=== PATIENT | female | born 1970 | race African-American/Black ===

== ENCOUNTER 2017-05-06 08:56 | Observation (INO) | payer MEDICAID ==
[~2017-05-06] VITALS: Ht 162.6 cm; Wt 72.6 kg
[~2017-05-06 08:56] MED LIST: LAMO200T2 PO; QUET200T3 PO
[2017-05-06 09:47] LABS: Basophils # (auto) 0 uL; Basophils % (auto) 0.4 % (0.0-2.0); Eosinophils # (auto) 0 uL; Hematocrit 42.5 % (36.0-46.0); Hemoglobin 14.3 g/dL (12.2-16.2); Lymphocytes # (auto) 1.1 uL; Mean Corpuscular Hemoglobin 29.9 pg (28.0-32.0); Mean Corpuscular Hgb Conc. 33.6 g/dL (32.0-36.0); Monocytes # (auto) 0.2 uL; Neutrophils # (auto) 10.1 uL; Neutrophils % (auto) 87.6 % (37.0-80.0); Nucleated Red Blood Cells % 0.2 %; Platelet Count (auto) 296 10^3/uL (140-450); Red Blood Cells 4.78 10^6/uL (4.0-5.20); Red Cell Distribution Width 13.6 % (11.8-14.3); White Blood Cell 11.5 10^3/uL (4.4-10.8)
[2017-05-06 10:10] LABS: Albumin 3.8 g/dL (3.4-5.0); Calcium 8.6 mg/dL (8.5-10.1); Magnesium 1.9 mg/dL (1.6-2.6); Potassium 3.7 mmol/L (3.5-5.1)
[2017-05-06 10:12] LABS: Bilirubin, Total 0.4 mg/dL (0.2-1.0); Total Protein 7.9 g/dL (6.4-8.2)
[2017-05-06] MEDS ORDERED: SODIUM CHLORIDE 0.9% 1,000 ML IVB ONE (12:27)
[2017-05-06] MEDS ORDERED: ONDANSETRON HCL 4 MG/2 ML VIAL IV ONE (12:30)
[2017-05-06 13:47] LABS: Urine Bacteria FEW /hpf (None Seen); Urine Blood 2+ /uL (Negative); Urine Mucus FEW (None Seen); Urine Specific Gravity 1.036 (1.001-1.035); Urine WBC 176 /hpf (0 - 5)
[2017-05-06] MEDS ORDERED: KETOROLAC TROMETH 60MG/2ML VIAL IM ONE (18:00)
[2017-05-06 19:30] VITALS: BP 130/92
== END 2017-05-06 19:59 | disposition home or self-care (01) | DRG 243 ==
LOC: EDBD 08:56 → ER 08:56 → OVERFLOW 12:29 → ER 19:57
PROVIDERS: ADMIT Family Medicine; ATTEND Family Medicine
DX: K20.9 Esophagitis, unspecified (principal); F32.9 Major depressive disorder, single episode, unspecified; N20.0 Calculus of kidney; E78.5 Hyperlipidemia, unspecified; F10.20 Alcohol dependence, uncomplicated; Z82.49 Family history of ischemic heart disease and other diseases of the circulatory system; Z79.899 Other long term (current) drug therapy
CPT/HCPCS: 36415; 74176; 80053; 81001; 82150; 83690; 83735; 84702; 85025; 96372; 99285; G0378; J1885

== ENCOUNTER 2018-05-30 01:01 | Emergency (ER) | payer MEDICAID ==
[~2018-05-30] VITALS: Ht 162.6 cm; Wt 72.6 kg
[2018-05-30 03:00] LABS: Basophils # (auto) 0 uL; Basophils % (auto) 0.4 % (0.0-2.0); Eosinophils # (auto) 0.4 uL; Eosinophils % (auto) 6.2 % (0.0-7.0); Hematocrit 35.7 % (36.0-46.0); Hemoglobin 11.8 g/dL (12.2-16.2); Lymphocytes # (auto) 1.2 uL; Lymphocytes % (auto) 18.1 % (10.0-50.0); Mean Corpuscular Hemoglobin 29.3 pg (28.0-32.0); Mean Corpuscular Volume 88.9 fL (80.0-100.0); Monocytes # (auto) 0.3 uL; Monocytes % (auto) 5.1 % (0.0-12.0); Neutrophils # (auto) 4.6 uL; Neutrophils % (auto) 70.2 % (37.0-80.0); Nucleated Red Blood Cells % 0.1 %; Platelet Count (auto) 228 10^3/uL (140-450); Red Blood Cells 4.02 10^6/uL (4.0-5.20); Red Cell Distribution Width 13.5 % (11.8-14.3); White Blood Cell 6.6 10^3/uL (4.4-10.8)
[2018-05-30 03:18] LABS: Alanine Aminotransferase 49 U/L (13-56); Albumin 2.6 g/dL (3.4-5.0); Anion Gap 9 (5-15); BUN/Creatinine Ratio 8.1; Blood Alcohol < 3.0 mg/dL (0-5); Blood Urea Nitrogen 6 mg/dL (7-18); Calcium 8.1 mg/dL (8.5-10.1); Carbon Dioxide 24 mmol/L (21-32); Chloride 107 mmol/L (98-107); GFR African American 108 mL/min; GFR Non-African American 89 mL/min; Glucose 99 mg/dL (74-106); Magnesium 2.5 mg/dL (1.6-2.6); Potassium 3.1 mmol/L (3.5-5.1); Sodium 140 mmol/L (136-145)
[2018-05-30 03:28] LABS: Alkaline Phosphatase 62 U/L (45-117); Aspartate Aminotransferase 75 U/L (15-37); Bilirubin, Total 0.5 mg/dL (0.2-1.0)
[2018-05-30 04:49] LABS: Acetaminophen < 2.0 ug/mL (10-30); Salicylate < 1.7 mg/dL (2.8-20.0)
[2018-05-30 05:48] LABS: Urine WBC None Seen /hpf (0 - 5)
[2018-05-30 06:05] LABS: Urine Bacteria FEW /hpf (None Seen); Urine Blood 2+ /uL (Negative); Urine Mucus FEW (None Seen); Urine Specific Gravity 1.031 (1.001-1.035)
[2018-05-30 06:13] LABS: Alcohol, Urine < 3.0 mg/dL (0-5); Amphetamine Screen, Urine NEGATIVE (NEGATIVE); Benzodiazephine Screen, Urine POSITIVE (NEGATIVE); Cannabinoid Screen, Urine POSITIVE (NEGATIVE); Opiate Scree,Urine NEGATIVE (NEGATIVE); Phencyclidine Screen, Urine NEGATIVE (NEGATIVE)
[2018-05-30 06:20] LABS: Barbiturate Scree,Urine NEGATIVE (NEGATIVE); Cocaine Screen, Urine NEGATIVE (NEGATIVE)
[2018-05-31] MEDS ORDERED: methylPREDNISolone SOD SUCC 125 MG/2 ML VL IV ONE (00:30)
[2018-05-31] MEDS ORDERED: IPRATROPIUM BROM 0.5 MG/2.5ML INH SOL NEB ONE (00:30)
[2018-05-31] MEDS ORDERED: ALBUTEROL SULF 2.5 MG/0.5ML(0.5%) NEB SOLN NEB ONE (00:30)
[2018-05-31] MEDS ORDERED: LORazepam 0.5 MG TAB PO ONE (10:00)
[2018-05-31] MEDS ORDERED: SODIUM CHLORIDE 0.9% 1,000 ML IV ONE ×2 (12:41)
[2018-05-31] MEDS ORDERED: POTASSIUM EFFERVESENT TAB 25 MEQ PO ONE (12:45)
[2018-05-31] MEDS ORDERED: PIPERACILLIN-TAZOB 3.375GM 100 ML IV ONE (12:45)
[2018-05-31] MEDS ORDERED: ONDANSETRON HCL 4 MG/2 ML VIAL IV PRN (13:30)
[2018-05-31] MEDS: SODIUM CHLORIDE 0.9% 1,000 ML IV SCH ×2 (13:30→23:30)
[2018-05-31] MEDS ORDERED: ACETAMINOPHEN 500 MG TAB PO PRN (13:30)
[2018-05-31] MEDS ORDERED: NITROGLYCERIN 0.4 MG SL TAB SL PRN (13:30)
[2018-05-31] MEDS ORDERED: MORPHINE SULF INJ 2 MG/ML SYRINGE 1ML IV PRN (13:30)
[2018-05-31 14:15] LABS: Cholesterol 228 mg/dL (< 200); HDL Cholesterol 116 mg/dL (40-59); LDL Cholesterol 91 mg/dL (< 100); Triglycerides 79 mg/dL (< 150)
[2018-05-31] MEDS ORDERED: HALOPERIDOL LACTATE 5 MG/ML INJ VIAL IV PRN (14:45)
[2018-05-31] MEDS: HALOPERIDOL LACTATE 5 MG/ML INJ VIAL IM PRN (16:04)
[2018-05-31] MEDS ORDERED: POTASSIUM EFFERVESENT TAB 25 MEQ ONE (20:56)
[2018-05-31] MEDS ORDERED: POTASSIUM CHL 20 Meq TABLET PO ONE (21:15)
[2018-05-31] MEDS: QUEtiapine FUMARATE 25 MG TAB PO SCH (22:00)
[2018-06-01] MEDS: HALOPERIDOL LACTATE 5 MG/ML INJ VIAL IM PRN ×2 (04:16→17:07)
[2018-06-01 05:30] LABS: Mean Corpuscular Hemoglobin 29.2 pg (28.0-32.0); Mean Corpuscular Hgb Conc. 32.5 g/dL (32.0-36.0); Mean Corpuscular Volume 89.9 fL (80.0-100.0); Platelet Count (auto) 278 10^3/uL (140-450); Red Blood Cells 4.12 10^6/uL (4.0-5.20); Red Cell Distribution Width 14.1 % (11.8-14.3); White Blood Cell 7.3 10^3/uL (4.4-10.8)
[2018-06-01 05:49] LABS: Basophils % (manual) 0 (0.0-2.0); Blast Cells 0; Metamyelocytes % 0; Myelocytes % 0; Promyelocytes % 0; Reactive Lymphocytes 0
[2018-06-01 05:58] LABS: Calcium 8.3 mg/dL (8.5-10.1); Potassium 3.4 mmol/L (3.5-5.1)
[2018-06-01 06:03] LABS: BUN/Creatinine Ratio 12.3; Bilirubin, Total 0.5 mg/dL (0.2-1.0); Total Protein 6.7 g/dL (6.4-8.2)
[2018-06-01] MEDS ORDERED: diphenhdrAMINE HCL 50 MG/1 ML VL ONE (06:51)
[2018-06-01] MEDS ORDERED: LORazepam 2MG/ML-1ML VIAL ONE (06:52)
[2018-06-01] MEDS ORDERED: diphenhdrAMINE HCL 50 MG/1 ML VL IV ONE (07:15)
[2018-06-01] MEDS ORDERED: LORazepam 2MG/ML-1ML VIAL IV ONE (07:15)
[2018-06-01 07:35] LABS: Band Neutrophils % (manual) 3; Eosinophils % (manual) 1 (0-7); Lymphocytes % (manual) 44 (10.0-50.0); Monocytes % (manual) 12 (0-12)
[2018-06-01] MEDS: SODIUM CHLORIDE 0.9% 1,000 ML IV SCH (08:05)
[2018-06-01] MEDS ORDERED: cefTRIAXone 1GM/50ML D5W 50 ML IV SCH (09:00)
[2018-06-01] MEDS: QUEtiapine FUMARATE 25 MG TAB PO SCH (10:00)
[2018-06-01] MEDS ORDERED: POTASSIUM CHL 20 Meq TABLET PO ONE (14:15)
[2018-06-01 17:33] VITALS: BP 129/84
== END 2018-06-01 19:20 | disposition home or self-care (01) ==
LOC: EDBD 01:01 → ER 01:01 → EDUNIT# 01:01 → UNDOADMIN 05-31 13:20 → OVERFLOW 05-31 13:20 → ER 06-01 19:20
DX: K85.90 Acute pancreatitis without necrosis or infection, unspecified (principal); R41.82 Altered mental status, unspecified; E44.0 Moderate protein-calorie malnutrition; N39.0 Urinary tract infection, site not specified; E87.6 Hypokalemia; D64.9 Anemia, unspecified; F31.9 Bipolar disorder, unspecified; F20.9 Schizophrenia, unspecified; F12.10 Cannabis abuse, uncomplicated; E78.5 Hyperlipidemia, unspecified
CPT/HCPCS: 36415; 70450; 71045; 76705; 80053; 80061; 80307; 80320; 80329; 81001; 81025; 83605; 83690; 83735; 84443; 84484; 85007; 85025; 85027; 87040; 93005; 94640; 96365; 96367; 96372; 96375; 99284; J0696; J1200; J1630; J2060; J2270; J2543; J2930; J7030; J7611; J7644; 96374; G0378

== ENCOUNTER 2019-01-07 22:35 | Emergency (ER) | payer MEDICAID ==
[~2019-01-07] VITALS: Ht 167.6 cm; Wt 68.0 kg
[2019-01-07 23:24] LABS: Hematocrit 41.6 % (36.0-46.0); Hemoglobin 13.6 g/dL (12.2-16.2); Mean Corpuscular Hemoglobin 30.4 pg (28.0-32.0); Mean Corpuscular Hgb Conc. 32.8 g/dL (32.0-36.0); Mean Corpuscular Volume 92.6 fL (80.0-100.0); Platelet Count (auto) 211 10^3/uL (140-450); Red Blood Cells 4.49 10^6/uL (4.0-5.20); Red Cell Distribution Width 15.4 % (11.8-14.3); White Blood Cell 7.1 10^3/uL (4.4-10.8)
[2019-01-07 23:27] LABS: Band Neutrophils % (manual) 0; Basophils % (manual) 0 (0.0-2.0); Blast Cells 0; Metamyelocytes % 0; Myelocytes % 0; Promyelocytes % 0
[2019-01-07 23:34] LABS: Albumin 3.3 g/dL (3.4-5.0); BUN/Creatinine Ratio 13.8; Calcium 8.2 mg/dL (8.5-10.1); Potassium 3.2 mmol/L (3.5-5.1); Salicylate 2.2 mg/dL (2.8-20.0)
[2019-01-07 23:36] LABS: Acetaminophen < 2.0 ug/mL (10-30)
[2019-01-07 23:39] LABS: Bilirubin, Total 0.4 mg/dL (0.2-1.0)
[2019-01-07 23:41] LABS: Eosinophils % (manual) 8 (0-7); Lymphocytes % (manual) 55 (10.0-50.0); Monocytes % (manual) 4 (0-12); Reactive Lymphocytes 3
[2019-01-07 23:42] LABS: Urine Bacteria FEW /hpf (None Seen); Urine Blood Negative /uL (Negative); Urine Specific Gravity 1.006 (1.001-1.035); Urine WBC <1 /hpf (0 - 5)
[2019-01-07 23:55] LABS: Amphetamine Screen, Urine NEGATIVE (NEGATIVE); Barbiturate Scree,Urine NEGATIVE (NEGATIVE); Benzodiazephine Screen, Urine NEGATIVE (NEGATIVE); Cannabinoid Screen, Urine POSITIVE (NEGATIVE); Cocaine Screen, Urine NEGATIVE (NEGATIVE); Opiate Scree,Urine NEGATIVE (NEGATIVE); Phencyclidine Screen, Urine NEGATIVE (NEGATIVE)
[2019-01-08] MEDS ORDERED: THIAMINE INJ 100 MG in SODIUM CHLORIDE 0.9% 1,000 ML IV ONE (00:45)
[2019-01-08] MEDS ORDERED: SODIUM CHLORIDE 0.9% 1,000 ML IV ONE ×2 (00:45)
[2019-01-08] MEDS ORDERED: THIAMINE 100mg/ml INJ (200mg/2ml VIAL) ONE (01:02)
[2019-01-08 01:36] LABS: Amylase 70 U/L (25-115); Lipase 46 U/L (73-393)
[2019-01-08 05:00] VITALS: BP 108/59
== END 2019-01-08 06:02 | disposition home or self-care (01) ==
LOC: EDBD 22:35 → ER 22:37
DX: K86.0 Alcohol-induced chronic pancreatitis (principal); F10.129 Alcohol abuse with intoxication, unspecified; E78.5 Hyperlipidemia, unspecified; F12.10 Cannabis abuse, uncomplicated; Y90.9 Presence of alcohol in blood, level not specified
CPT/HCPCS: 36415; 80053; 80307; 80320; 80329; 81001; 82150; 83690; 85007; 85027; 96365; 96366; 99283; J3411; J7030

== ENCOUNTER 2022-12-16 00:15 | Emergency (ER) | payer MEDICAID ==
[~2022-12-16] VITALS: Ht 162.6 cm; Wt 68.0 kg
[2022-12-16 00:15] VITALS: BP 133/63; PULSE 107; RESP 20; TEMP 98
[~2022-12-16 00:15] MED LIST changes: -QUET200T3 PO; +QUET200T4 PO
[2022-12-16 02:50] VITALS: O2SAT 95
== END 2022-12-16 02:58 | disposition left against medical advice (07) ==
LOC: ER 00:15
DX: Z48.03 Encounter for change or removal of drains (principal); F41.9 Anxiety disorder, unspecified; F32.9 Major depressive disorder, single episode, unspecified; E78.5 Hyperlipidemia, unspecified; Z98.890 Other specified postprocedural states; Z79.899 Other long term (current) drug therapy

== ENCOUNTER 2023-08-04 00:12 | Emergency (ER) | payer MEDICAID ==
[~2023-08-04] VITALS: Ht 162.6 cm; Wt 76.4 kg
[2023-08-04 01:02] LABS: Basophils # (auto) 0.1 10 ^3/uL (0-0.2); Basophils % (auto) 0.8 % (0.0-2.0); Eosinophils # (auto) 0.8 10 ^3/uL (0-0.8); Eosinophils % (auto) 7.6 % (0.0-7.0); Hematocrit 45.5 % (36.0-46.0); Lymphocytes % (auto) 40.3 % (10.0-50.0); Mean Corpuscular Hemoglobin 28.9 pg (28.0-32.0); Mean Corpuscular Hgb Conc. 32.8 g/dL (32.0-36.0); Mean Corpuscular Volume 88.1 fL (80.0-100.0); Monocytes # (auto) 0.5 10 ^3/uL (0-1.3); Monocytes % (auto) 5.3 % (0.0-12.0); Neutrophils # (auto) 4.6 10 ^3/uL (1.6-8.6); Nucleated Red Blood Cells % 0.2 %; Red Blood Cells 5.17 10^6/uL (4.0-5.20)
[2023-08-04 01:09] LABS: Urine Bacteria None Seen /hpf (None Seen)
[2023-08-04 01:23] LABS: Alanine Aminotransferase 25 U/L (7-40); Albumin 4.1 g/dL (3.2-4.8); Alkaline Phosphatase 59 U/L (46-116); Anion Gap 9 (5-15); Aspartate Aminotransferase 16 U/L (13-40); Blood Urea Nitrogen 15 mg/dL (9-23); Calcium 10.5 mg/dL (8.7-10.4); Carbon Dioxide 34 mmol/L (20-30); Chloride 97 mmol/L (98-107); Glucose 128 mg/dL (74-106); Potassium 3.2 mmol/L (3.5-5.1); Sodium 140 mmol/L (136-145)
[2023-08-04 01:24] LABS: Bilirubin, Total 0.5 mg/dL (0.2-1.0); Total Protein 7.5 g/dL (5.7-8.2)
[2023-08-04 01:29] LABS: Urine Blood Negative /uL (Negative); Urine Clarity Clear (Clear); Urine Color Light-Yellow (Yellow); Urine Protein, UAD 2+ (Negative); Urine Specific Gravity 1.023 (1.001-1.035); Urine Urobilinogen Normal (Negative); Urine WBC 1 /hpf (0 - 5); Urine pH 8.5 (5.0-9.0)
[2023-08-04 02:51] VITALS: BP 138/68; PULSE 98; RESP 18; TEMP 98.5; O2SAT 100
== END 2023-08-04 02:51 | disposition home or self-care (01) ==
LOC: ER 00:12
DX: R10.84 Generalized abdominal pain (principal); F41.9 Anxiety disorder, unspecified; F32.9 Major depressive disorder, single episode, unspecified; E78.5 Hyperlipidemia, unspecified; F10.90 Alcohol use, unspecified, uncomplicated; Z79.899 Other long term (current) drug therapy; Y90.0 Blood alcohol level of less than 20 mg/100 ml
CPT/HCPCS: 36415; 80053; 81001; 85025

== ENCOUNTER 2024-07-01 06:13 | Inpatient (IN) | payer MEDICAID ==
[2024-07-01] VITALS (8 sets, daily range): BP systolic 130–144; BP diastolic 72–74; PULSE 96–103; RESP 13–16; TEMP 97.8–98.2; O2SAT 96–100
[~2024-07-01] VITALS: Ht 165.1 cm; Wt 80.3 kg
--- NOTE | 2024-07-01 06:26 | ED.PDOC ---
HPI (NEURO) HPI Comments 54 year old female RAMONA presents to the ED with chief complaint of dizziness s/p overdose on medication. EMS reports that the patient had trouble sleeping last night and decided to take 7 pills of her 150mg Lamotrigine and 150mg of Seroquel. EMS relays that the patient began to experience dizziness and that is when she called 911. Patient states she has been under recent stress and has found it hard to sleep. Patient denies any SI, HI, headache, nausea, vomiting, abdominal pain, or chest pain. Time Seen by MD: 06:18 Primary Care Provider: UNKNOWN Reviewed Notes: Nurses Notes, Veneer Sawyer Notes, Medications, Allergies Information Source: Patient, Emergency Med Personnel Mode of Arrival: EMS Severity: Moderate Dizziness/Weakness Severity: Does not affect activitie Timing: Hours Duration: Since onset Prehospital treatment: None Onset: At rest Circumstances: Other (took 7 Lamotrigine and 7 Seroquel) Symptoms: Other (Dizziness) Past Medical History PAST MEDICAL HISTORY: Anxiety, Depression, High Lipids Surgical History: Denies all surgeries [employer]ER History: Denies all BOOT [employer]ER Hx Family History Family History: Reviewed,noncontributory to illness Social History Smoker: Non-Smoker Alcohol: Heavy Drugs: Denies Drug Use Lives In: Home Constitutional: denies: chills, diaphoresis, fatigue, fever, malaise, sweats, weakness, others EENTM: denies: blurred vision, double vision, ear bleeding, ear discharge, ear drainage, ear pain, ear ringing, eye pain, eye redness, hearing loss, mouth pain, mouth swelling, nasal discharge, nose bleeding, nose congestion, nose pain, photophobia, tearing, throat pain, throat swelling, voice changes, others Respiratory: denies: cough, hemoptysis, orthopnea, SOB at rest, shortness of breath, SOB with excertion, stridor, wheezing, others Cardiovascular: denies: chest pain, dizzy spells, diaphoresis, Dyspnea on exertion, edema, irregular heart beat, left arm pain, lightheadedness, palpitations, PND, syncope, others Gastrointestinal: denies: abdomen distended, abdominal pain, blood streaked bowels, constipated, diarrhea, dysphagia, difficulty swallowing, hematemesis, melena, nausea, poor appetite, poor fluid intake, rectal bleeding, rectal pain, vomiting, others Genitourinary: denies: abnormal vagina bleeding, burning, dyspareunia, dysuria, flank pain, frequency, hematuria, incontinence, pain, , vagina discharge, urgency, others Neurological: reports: dizziness; denies: fainting, headache, left sided numbness, left sided weakness, numbness, paresthesia, pre-existing deficit, right sided numbness, right sided weakness, seizure, speech problems, tingling, tremors, weakness, others Musculoskeletal: denies: back pain, gout, joint pain, joint swelling, muscle pain, muscle stiffness, neck pain, others Integumetry: denies: bruises, change in color, change in hair/nails, dryness, laceration, lesions, lumps, rash, wounds, others Allergic/Immunocompromised: denies: Difficulty Healing, Frequent Infections, Hives, Itching, others Hematologic/Lymphatic: denies: anemia, blood clots, easy bleeding, easy bruising, swollen glands, others Endocrine: denies: excessive hunger, excessive sweating, excessive thirst, excessive urination, flushing, intolerance to cold, intolerance to heat, unexplained weight gain, unexplained weight loss, others Psychiatric: denies: anxiety, bipolar disorder, depression, hopeless, panic disorder, schizophrenia, sleepless, suicidal, others All Other Systems: Reviewed and Negative Physical Exam General Appearance: Moderate Distress, Normal HEENT: Normal ENT Inspection, PERRL/EOMI Neck: Full Range of Motion, Non-Tender, Normal, Normal Inspection Respiratory: Chest Non-Tender, Lungs Clear, No Accessory Muscle Use, No Respiratory Distress, Normal Breath Sounds Cardiovascular: No Edema, No JVD, No Murmur, No Gallop, Normal Peripheral Pulses, Regular Rate/Rhythm Breast Exam: Deferred Gastrointestinal: No Organomegaly, Non Tender, No Pulsatile Mass, Normal Bowel Sounds, Soft Genitalia: Deferred Pelvic: Deferred Rectal: Deferred Extremities: No calf tenderness, Normal capillary refill, Normal inspection, Normal range of motion, Non-tender, No pedal edema Musculoskeletal : Apperance: Normal Neurologic: Alert, gig tender II-XII nml as Tested, No Motor Deficits, Normal Affect, Normal Mood, No Sensory Deficits Cerebellar Function: Normal Reflexes: Normal Skin: Dry, Normal Color, Warm Peripheral Pulses: 3+ Radial (R), 3+ Radial (L) Lymphatic: No Adenopathy Was a procedure done? Was a procedure done?: No Differential Diagnosis (SZ) Seizure: Psychogenic Seizure, Closed Head Injury, CVA/TIA X-Ray, Labs, Meds, VS Vital Signs Date Time Temp Pulse Resp B/P (MAP) Pulse Ox O2 Delivery O2 Flow Rate FiO2 07/01/24 06:19 96 07/01/24 06:15 98.1 98 24 144/75 (98) 99 98.1 Current Medications Medications (Trade) Dose Ordered Sig/Hood Route Start Time Stop Time Status Last Admin Sodium Chloride 1,000 ml @ 1,000 mls/hr Q1H ONCE IV 07/01/24 06:45 07/01/24 07:44 07/01/24 06:54 Patient alert. Had taken some Seroquel. She wanted to sleep. Vitals stable. Denies suicidal or homicidal ideation. No sign of any injury. EKG reviewed does not show any acute process. Reviewed her history. Explained to the patient that she will need to be admitted for monitoring her cardiac. Continue monitoring. Time of 1ST Reevaluation: 07:18 Reevaluation 1ST: Improved Patient Education/Counseling: Diagnosis, Treatment Family Education/Counseling: No Family Present Additional Information The following tests were ordered, and results were reviewed by me: EKG, UDS, UA, CBC, BMP, Troponin Additional Information was gathered from interviewing the following independent historians: EMS I reviewed and agreed with the following test results read by other providers: None I discussed treatment and results with medical personnel and: Patient Comprehensive systems review obtained and negative except for what is stated in the HPI. Departure 1 Departure Time of Disposition: 06:35 Impression: Primary Impression: Drug overdose Qualified Codes: T50.901A - Poisoning by unspecified drugs, medicaments and biological substances, accidental (unintentional), initial encounter Disposition: ADMITTED INPATIENT Admit to: Med Surg Condition: Guarded Critical Care Note Critical Care Time?: No Stability Stability form required: No Heart Score Heart Score: Heart Score Response (Comments) Value History Slightly Suspicious 0 EKG Normal 0 Age 45-64 1 Risk Factors 1 or 2 risk factors 1 Troponin Normal limit 0 Total 2 I personally scribed for KAMERON ORNELAS MD ([email or web address]) on 07/01/24 at 06:26. Electronically submitted by Ramone Gilbert ([email or web address]). I personally scribed for KAMERON ORNELAS MD ([email or web address]) on 07/01/24 at 06:56. Electronically submitted by Ramone Gilbert ([email or web address]). KAMERON ORNELAS MD Jul 01, 2024 06:26
[2024-07-01] MEDS: SODIUM CHLORIDE 0.9% 1,000 ML IV ONE (06:54)
[2024-07-01 07:47] LABS: Basophils # (auto) 0 10 ^3/uL (0-0.2); Basophils % (auto) 0.4 % (0.0-2.0); Eosinophils # (auto) 0.1 10 ^3/uL (0-0.8); Eosinophils % (auto) 1.2 % (0.0-7.0); Hematocrit 39.1 % (36.0-46.0); Hemoglobin 12.7 g/dL (12.2-16.2); Lymphocytes # (auto) 0.9 10 ^3/uL (0.4-5.4); Lymphocytes % (auto) 12.1 % (10.0-50.0); Mean Corpuscular Hemoglobin 29.2 pg (28.0-32.0); Mean Corpuscular Hgb Conc. 32.4 g/dL (32.0-36.0); Monocytes # (auto) 0.3 10 ^3/uL (0-1.3); Monocytes % (auto) 4.3 % (0.0-12.0); Neutrophils # (auto) 6.2 10 ^3/uL (1.6-8.6); Platelet Count (auto) 258 10^3/uL (140-450); Red Blood Cells 4.34 10^6/uL (4.0-5.20); Red Cell Distribution Width 16.7 % (11.8-14.3); White Blood Cell 7.6 10^3/uL (4.4-10.8)
[2024-07-01 07:56] LABS: Chloride 101 mmol/L (98-107); Sodium 139 mmol/L (136-145)
[2024-07-01 07:57] LABS: Anion Gap 8 (5-15); Calcium 9.6 mg/dL (8.7-10.4); Carbon Dioxide 30 mmol/L (20-31); Potassium 3.4 mmol/L (3.5-5.1)
[2024-07-01 08:02] LABS: BUN/Creatinine Ratio 6.9 (10.0-20.0)
[2024-07-01 08:06] LABS: Blood Urea Nitrogen 6 mg/dL (9-23); Glucose 115 mg/dL (74-106)
--- NOTE | 2024-07-01 08:08 | DVHHP2 ---
History of Present Illness Reason for Visit: Dizziness History of Present Illness Cristina Shay is a 54-year-old female with past medical history of hyperlipidemia, depression, pancreatitis, bipolar disease, schizophrenia, UTI, anemia, and protein malnutrition who presents to the ED with dizziness, nausea, and vomiting after ingesting Seroquel and lamotrigine together. Patient reports that she usually takes the combination of these pills and alcohol together to help her better sleep. She denies any suicidal plans or harm to herself. She does report that she sees a psychiatrist but does not recall the name. Patient reports that she was not trying to harm herself she was just trying in a get some rest and has been taking these medications to help her sleep. Patient reports that she does drink twice a week with a combination of the prescribed medications. Patient denies any chest pain, fever, chills, lightheadedness, weakness, dizziness, diarrhea, abdominal pain, chest pain, or shortness of Breath. Counseled patient not taking these medications that are prescribed with alcohol use and to use these medications as they were intended for. Cardiovascular: hyperipidemia Heme/Onc: Anemia NOS Psych: Bipolar, Depression, Schizophrenia Renal/: UTI Past Medical History Pancreatitis Protein malnutrition Past Surgical History: None Family History: Hyperlipidemia, Hypertension, Other (Mom with hypertension and hyperlipidemia) Smoke: No ALCOHOL: occassional Drugs: Marijuana Lives: with Family Domestic Violence: Neg Review of Systems Constitutional: Yes: Other (Dizziness) Gastrointestinal: Nausea, Vomiting Allergies: Coded Allergies: NO KNOWN ALLERGIES (Unverified , 06/06/10) Medications Current Medications Medications Dose Ordered Sig/Hood Route Start Time Stop Time Status Last Admin Dose Admin Ondansetron HCl 4 mg Q4HP PRN IV 07/01/24 08:00 UNV Acetaminophen 650 mg Q6HP PRN PO 07/01/24 08:00 UNV Exam Vital Signs Vital Signs Date Time Temp Pulse Resp B/P (MAP) Pulse Ox O2 Delivery O2 Flow Rate FiO2 07/01/24 07:00 98.1 98 24 144/75 (98) 99 98.1 07/01/24 06:54 Room Air* 0 21 General Appearance: Alert, Oriented X3, Cooperative, No acute distress HEENT: Atraumatic, PERRLA, EOMI, Mucous membr. moist/pink Respiratory: Clear to auscultation, Normal air movement Cardiovascular: Regular rate, Normal S1, Normal S2, No murmurs Abdominal: Normal bowel sounds, Soft, No tenderness, No hepatospenomegaly, No masses Extremities: No clubbing, No cyanosis, No edema, Normal pulses, No tenderness/swelling Skin: No significant lesion Neuro: Normal speech, Strength at 5/5 X4 ext, Normal tone, Sensation intact Psych/Mental Status: Mental status NL, Mood NL Labs/Xrays Labs Test 07/01/24 07:30 Range/Units White Blood Count 7.6 4.4-10.8 10^3/uL Red Blood Count 4.34 4.0-5.20 10^6/uL Hemoglobin 12.7 12.2-16.2 g/dL Hematocrit 39.1 36.0-46.0 % Mean Corpuscular Volume 90.0 80.0-100.0 fL Mean Corpuscular Hemoglobin 29.2 28.0-32.0 pg Mean Corpuscular Hemoglobin Concent 32.4 32.0-36.0 g/dL Red Cell Distribution Width 16.7 H 11.8-14.3 % Platelet Count 258 140-450 10^3/uL Mean Platelet Volume 8.3 6.9-10.8 fL Neutrophils (%) (Auto) 82.0 H 37.0-80.0 % Lymphocytes (%) (Auto) 12.1 10.0-50.0 % Monocytes (%) (Auto) 4.3 0.0-12.0 % Eosinophils (%) (Auto) 1.2 0.0-7.0 % Basophils (%) (Auto) 0.4 0.0-2.0 % Neutrophils # (Auto) 6.2 1.6-8.6 10 ^3/uL Lymphocytes # (Auto) 0.9 0.4-5.4 10 ^3/uL Monocytes # (Auto) 0.3 0-1.3 10 ^3/uL Eosinophils # (Auto) 0.1 0-0.8 10 ^3/uL Basophils # (Auto) 0 0-0.2 10 ^3/uL Nucleated Red Blood Cells 0.0 % Sodium Level 139 136-145 mmol/L Potassium Level 3.4 L 3.5-5.1 mmol/L Chloride Level 101 98-107 mmol/L Carbon Dioxide Level 30 20-31 mmol/L Anion Gap 8 5-15 Blood Urea Nitrogen 6 L 9-23 mg/dL Creatinine 0.87 0.550-1.02 mg/dL Glomerular Filtration Rate Calc 79 >90 mL/min BUN/Creatinine Ratio 6.9 L 10.0-20.0 Serum Glucose 115 H 74-106 mg/dL Calcium Level 9.6 8.7-10.4 mg/dL Troponin I High Sensitivity < 3 L </=34 ng/L Assessment/Plan Assessment/Plan Assessment Autonomic imbalance status post ingestion of prescription medications Intractable nausea and vomiting Hypokalemia ? Pneumonitis versus aspiration pneumonia Tobacco use Alcohol use History of hyperlipidemia History of depression History of pancreatitis History of bipolar disease History of schizophrenia History of UTIs History of anemia History of protein malnutrition Plan [facility] 1 L given in ED Troponin UA UDS EKG noted Chest x-ray ordered IV antibiotics-ceftriaxone Antiemetics Pain management Home medications reconciled DVT prophylaxis-not indicated patient ambulating PUD prophylaxis-not indicated no history of GERD or GI bleed Discussed plan of care with patient and nurse Counseled patient on cessation of tobacco use Counseled patient on cessation of alcohol use Plan discussed with: Patient My Orders Orders - RAQUEL SHEPPARD Procedure Category Date Status Time Admit ADMIT 07/01/24 Transmitted 07:49 Allergies DESTINI 07/01/24 Transmitted 07:49 Code Status CODE 07/01/24 Transmitted 07:49 Ondansetron Hcl PHA 07/01/24 Transmitted (Zofran) 08:00 Complete Blood Count LAB 07/02/24 Verified 04:00 Comprehensive LAB 07/02/24 Verified Metabolic Panel 04:00 Cardiac DIET 07/01/24 Transmitted Diet-2gna,Lofat,Lochol Breakfast Acetaminophen Tablet PHA 07/01/24 Transmitted (Tylenol Tablet) 08:00 Sequential DESTINI 07/01/24 Transmitted Compression Device Chest Xray 1 View XY 07/01/24 Transmitted 07:49 (Nf) Lamotrigine PHA 07/01/24 Transmitted (Lamictal) 10:00 (Nf) Quetiapine PHA 07/01/24 Transmitted Fumerate (Seroquel Xr) 18:00 Date of Service: Jul 01, 2024 Billing Provider: RAQUEL SHEPPARD Common Visit Codes: 50228-ESPBKVD INP/OBS CARE (HIGH) RAQUEL SHEPPARD Jul 01, 2024 08:07
--- NOTE | 2024-07-01 08:26 | ECG ---
[facility] Test Date: 2024-07-01 Test Time: 06:19:08 Pat Name: KELIN AHUMADA Department: ED Room: [facility] Gender: F Merchant Banker: jacqueline : 1970 Requested By: EMERGENCY EMERGENCY Order Number: [id number] Reading MD: Antonio Cam Measurements Intervals [place] Rate: 96 P: 60 HI: 201 QRS: 36 QRSD: 80 T: 46 QT: 354 QTc: 448 Interpretive Statements Sinus rhythm Borderline prolonged HI interval Probable left atrial enlargement Electronically Signed On 07-01-2024 13:47:49 PDT by Antonio Cam Please click the below link to view image of tracing.
--- NOTE | 2024-07-01 09:07 | DVH ---
CHEST RADIOGRAPH Indication: dizzy Technique: Single frontal view of the chest was obtained COMPARISON: None FINDINGS: Lines and Tubes: None Lungs: Clear Pleura: No effusion. No pneumothorax. Cardiomediastinal contours: Unremarkable Bones: Unremarkable IMPRESSION: No acute disease.
[2024-07-01 09:24] LABS: Urine Bacteria FEW /hpf (None Seen); Urine Blood Negative /uL (Negative); Urine Clarity Clear (Clear); Urine Color Colorless (Yellow); Urine Protein, UAD Negative (Negative); Urine Specific Gravity 1.006 (1.001-1.035); Urine Squamous Epithelial Cell FEW /hpf (<5); Urine Urobilinogen Normal (Negative); Urine WBC < 1 /HPF (0-5); Urine pH 8.5 (5.0-9.0)
[2024-07-01 09:30] LABS: Amphetamine Screen, Urine Neg (NEGATIVE)
[2024-07-01 09:31] LABS: Barbiturate Scree,Urine Neg (NEGATIVE); Benzodiazephine Screen, Urine Neg (NEGATIVE)
[2024-07-01 09:32] LABS: Cannabinoid Screen, Urine Neg (NEGATIVE); Cocaine Screen, Urine Neg (NEGATIVE); Opiate Scree,Urine Neg (NEGATIVE)
[2024-07-01 09:41] LABS: Phencyclidine Screen, Urine Neg (NEGATIVE)
[2024-07-01] MEDS: POTASSIUM CHL 20 Meq TABLET PO ONE (09:49)
[2024-07-01] MEDS: cefTRIAXone 1GM/50ML D5W 50 ML IV SCH (09:49)
[2024-07-01] MEDS: ONDANSETRON HCL 4 MG/2 ML VIAL IV PRN (09:49)
[2024-07-01] MEDS ORDERED: PATIENTS OWN MEDICATION (Lamotrigine (Lamictal) 1 TAB) PO SCH (10:00)
--- NOTE | 2024-07-01 13:29 | DVHINCON2 ---
Date of service: Jul 01, [address] Beasley Reason for Consultation Autonomic imbalance History of Present Illness Ms. Shay is a 54 years old female with a history of dyslipidemia, pancreatitis, anemia, anxiety, depression, bipolar disorder, schizophrenia, she came to the [facility] on 07/01/2024 with a chief complaint of dizziness, overdosing with a psychiatric medication. At that time, the patient was alert, fully oriented, she does not look depressed, she provided the following history Because of worsening insomnia, the patient was has been using extra lamotrigine, Seroquel with poor result. One day prior to this hospital visit, she used "a lot of lamotrigine" maybe 7-10 tablets, and a lot of Seroquel, and she was developed dizziness, nausea, vomiting, imbalance. Sleep was better after she came to the hospital. She tells me this was not a suicidal attempt, and she does not have suicidal ideation at all She reported having a lot of issues in the home that she did not want to discuss/talk about According to our record, the patient is supposed to be on lamotrigine 200 mg daily, Seroquel 200 mg daily Urinalysis, : Unremarkable UDS, 07/01/2024: Negative CBC, 07/01/2024: Unremarkable BMP, 07/01/2024: Unremarkable Past Medical History Dyslipidemia, pancreatitis, anemia, anxiety, depression, bipolar disorder, schizophrenia Past Surgical History No major surgeries Family History: Family history: Asthma Family history: Hypercholesterolemia (situation) Family history: Hypertension Family History Hypertension, dyslipidemia, asthma. One brother committed suicide Social History She was no history of tobacco smoking, she drinks alcohol once weekly, three each time. She was used CBD marijuana once a while, otherwise no drug abuse Allergies: Coded Allergies: NO KNOWN ALLERGIES (Unverified , 06/06/10) Home Meds Reported Medications Quetiapine Fumerate (Seroquel Xr) 200 Mg Tab, 1 TAB PO QPM, #30 TAB 1 Refill 05/26/15 Lamotrigine (Lamictal) 200 Mg Tab, 1 TAB PO DAILY, #30 TAB 1 Refill 05/26/15 Current Medications Current Medications Medications (Trade) Dose Ordered Sig/Hood Route PRN Reason Start Time Stop Time Status Last Admin Ondansetron HCl (Zofran) 4 mg Q4HP PRN IV NAUSEA / VOMITING 07/01/24 08:00 07/01/24 09:49 Acetaminophen (Tylenol Tablet) 650 mg Q6HP PRN PO PAIN SCALE 1-3 OR TEMP>100.4 07/01/24 08:00 Patient Own Medication 1 tab DAILY PO 07/01/24 10:00 UNV Patient Own Medication 1 tab QPM PO 07/01/24 18:00 UNV Ceftriaxone Sodium 50 ml @ 100 mls/hr DAILY@09 IV 07/01/24 09:00 07/01/24 09:49 Review of Systems As above, the other systems are negative Vital Signs Vital Signs Date Time Temp Pulse Resp B/P (MAP) Pulse Ox O2 Delivery O2 Flow Rate FiO2 07/01/24 12:00 109 14 131/65 (87) 94 07/01/24 08:00 97.8 97.8 07/01/24 08:00 Room Air* 0 21 Physical Exam GENERAL EXAM: General: the patient is well developed and nourished. No acute distress. HEENT: Normocephalic, neck is supple, no carotid bruits. No mass. RESPIRATORY: Normal respiratory effort with symmetrical lung expansion. Lungs clear to auscultation. CARDIOVASCULAR: Regular rate and rhythm with no murmurs. S1, S2. ABDOMEN: Soft, nontender, normal bowel sound NEUROLOGICAL: MENTAL STATUS: Awake and alert. Oriented to person, place, time and general circumstances. Able to give personal history. SPEECH, LANGUAGE, HIGHER CORTICAL FUNCTION: no aphasia or dysathria. CRANIAL NERVES: #2: Intact visual castro to confrontation. The optic discs were sharp. #3,4,6: Pupils are equal, round and reactive. EOMs full and conjugate. No nystagmus. #5: Facial sensation intact in all three divisions bilaterally. Mandibular strength intact. #7: Facial muscles symmetrical and strength intact. #8: Hearing grossly normal to voice. #9,10: Uvula and soft palate rise in the midline. Swallow and voice are normal. #11: Trapezius and sternomastoid strength intact bilaterally. #12: Tongue midline. No fasciculations or atrophy. SENSATION: Sensation to touch and pinprick is normal. MOTOR: Normal tone in the upper and lower extremity. Normal muscle bulk. No fasciculations. No abnormal movements or posturing. Muscle strength of the major groups in the upper extremities is 5/5. Muscle strength of the major groups in the lower extremities is 5/5. REFLEXES: Deep tendon reflexes normal and symmetrical. No pathological reflexes. CEREBELLAR/COORDINATION: Finger to nose is normal bilaterally. GAIT/STATION: deferred. Labs/Diagnostic Data Labs Test 07/01/24 09:00 07/01/24 07:30 Range/Units Urine Color Colorless Yellow Urine Clarity Clear Clear Urine pH 8.5 5.0-9.0 Urine Specific [place] 1.006 1.001-1.035 Urine Protein Negative Negative Urine Ketones Negative Negative Urine Blood Negative Negative /uL Urine Nitrite Negative Negative Urine Bilirubin Negative Negative Urine Urobilinogen Normal Negative mg/dL Urine Leukocyte Esterase Negative Negative /uL Urine RBC <1 0 - 4 /hpf Urine Microscopic WBC < 1 0-5 /HPF Urine Squamous Epithelial Cells Few <5 /hpf Urine Bacteria Few H None Seen /hpf Urine Glucose Normal Normal mg/dL Urine Opiates Screen Neg NEGATIVE Urine Fentanyl Screen Neg NEGATIVE Urine Barbiturates Screen Neg NEGATIVE Urine Phencyclidine Screen Neg NEGATIVE Urine Amphetamines Screen Neg NEGATIVE Urine Benzodiazepines Screen Neg NEGATIVE Urine Cocaine Screen Neg NEGATIVE Urine Cannabinoids Screen Neg NEGATIVE White Blood Count 7.6 4.4-10.8 10^3/uL Red Blood Count 4.34 4.0-5.20 10^6/uL Hemoglobin 12.7 12.2-16.2 g/dL Hematocrit 39.1 36.0-46.0 % Mean Corpuscular Volume 90.0 80.0-100.0 fL Mean Corpuscular Hemoglobin 29.2 28.0-32.0 pg Mean Corpuscular Hemoglobin Concent 32.4 32.0-36.0 g/dL Red Cell Distribution Width 16.7 H 11.8-14.3 % Platelet Count 258 140-450 10^3/uL Mean Platelet Volume 8.3 6.9-10.8 fL Neutrophils (%) (Auto) 82.0 H 37.0-80.0 % Lymphocytes (%) (Auto) 12.1 10.0-50.0 % Monocytes (%) (Auto) 4.3 0.0-12.0 % Eosinophils (%) (Auto) 1.2 0.0-7.0 % Basophils (%) (Auto) 0.4 0.0-2.0 % Neutrophils # (Auto) 6.2 1.6-8.6 10 ^3/uL Lymphocytes # (Auto) 0.9 0.4-5.4 10 ^3/uL Monocytes # (Auto) 0.3 0-1.3 10 ^3/uL Eosinophils # (Auto) 0.1 0-0.8 10 ^3/uL Basophils # (Auto) 0 0-0.2 10 ^3/uL Nucleated Red Blood Cells 0.0 % Sodium Level 139 136-145 mmol/L Potassium Level 3.4 L 3.5-5.1 mmol/L Chloride Level 101 98-107 mmol/L Carbon Dioxide Level 30 20-31 mmol/L Anion Gap 8 5-15 Blood Urea Nitrogen 6 L 9-23 mg/dL Creatinine 0.87 0.550-1.02 mg/dL Glomerular Filtration Rate Calc 79 >90 mL/min BUN/Creatinine Ratio 6.9 L 10.0-20.0 Serum Glucose 115 H 74-106 mg/dL Calcium Level 9.6 8.7-10.4 mg/dL Troponin I High Sensitivity < 3 L </=34 ng/L Assessment Dizziness, nausea, vomiting, imbalance, secondary to medication effects with lamotrigine and Seroquel Overdosing with lamotrigine and Seroquel, clinically no signs of depression or suicidal issues, but need a 2nd opinion from psychiatrist Insomnia, secondary to psychiatric issue Depression, anxiety, bipolar disorder, schizophrenia Plan/Recommendation Monitoring Supportive treatment Telemetry MR brain Resume psychiatric medication later Psychiatry evaluation RE: Overdosing, rule out suicide attempt Prognosis, poor This medical document was created using an electronic medical record system with [employer] dictation system. Although this document has been carefully reviewed, there may still be some phonetic and typographical errors. These areas are purely typographical due to imperfections of the software programs, and do not reflect any compromise in the patient's medical care. Plan discussed with: Patient, Other ELISEO PAIGE MD Jul 01, 2024 13:29
[2024-07-01] MEDS: hydrOXYzine 25 MG TAB or CAP PO ONE (16:34)
[2024-07-01 17:39] LABS: Acetaminophen < 2.0 UG/ML (10.0-20.0); Salicylate < 3.0 mg/dL (-30)
[2024-07-01] MEDS: IPRATROPIUM BROM 0.5 MG/2.5ML INH SOL NEB SCH (18:00)
[2024-07-01] MEDS: ALBUTEROL SULF 2.5 MG/0.5ML(0.5%) NEB SOLN NEB SCH (18:00)
[2024-07-01] MEDS: IPRATROPIUM BROM 0.5 MG/2.5ML INH SOL ONE ×2 (18:16→21:58)
[2024-07-01] MEDS: ALBUTEROL SULF 2.5 MG/0.5ML(0.5%) NEB SOLN ONE ×2 (18:16→21:58)
[2024-07-01] MEDS: QUETIAPINE FUMERATE 200 MG PO SCH (23:08)
[2024-07-01] MEDS: lamoTRIgine 100 MG TAB PO SCH (23:17)
[2024-07-01] MEDS ORDERED: FURO1TAB31 PO (23:47)
[2024-07-01] MEDS ORDERED: SIMV20TA20 PO (23:47)
[2024-07-02] VITALS (8 sets, daily range): BP systolic 108–131; BP diastolic 62–73; PULSE 94–102; RESP 17–18; TEMP 98.1–98.6; O2SAT 95–100
[2024-07-02] MEDS: QUEtiapine FUMARATE 25 MG TAB PO ONE (00:54)
[2024-07-02] MEDS ORDERED: CALC500C3 PO (01:01)
[2024-07-02] MEDS: MELATONIN 5 MG TAB PO ONE (01:03)
[2024-07-02] MEDS: ACETAMINOPHEN 325 MG TAB PO PRN (02:17)
[2024-07-02 06:54] LABS: Basophils # (auto) 0 10 ^3/uL (0-0.2); Basophils % (auto) 0.5 % (0.0-2.0); Eosinophils # (auto) 0.1 10 ^3/uL (0-0.8); Eosinophils % (auto) 2.5 % (0.0-7.0); Hematocrit 35.8 % (36.0-46.0); Hemoglobin 11.7 g/dL (12.2-16.2); Lymphocytes # (auto) 2.3 10 ^3/uL (0.4-5.4); Lymphocytes % (auto) 40.1 % (10.0-50.0); Mean Corpuscular Hemoglobin 29.1 pg (28.0-32.0); Mean Corpuscular Hgb Conc. 32.5 g/dL (32.0-36.0); Mean Corpuscular Volume 89.5 fL (80.0-100.0); Monocytes # (auto) 0.3 10 ^3/uL (0-1.3); Monocytes % (auto) 4.8 % (0.0-12.0); Neutrophils # (auto) 2.9 10 ^3/uL (1.6-8.6); Neutrophils % (auto) 52.1 % (37.0-80.0); Nucleated Red Blood Cells % 0.2 %; Platelet Count (auto) 239 10^3/uL (140-450); Red Blood Cells 4.01 10^6/uL (4.0-5.20); Red Cell Distribution Width 16.8 % (11.8-14.3); White Blood Cell 5.7 10^3/uL (4.4-10.8)
[2024-07-02 07:13] LABS: Albumin 3.6 g/dL (3.2-4.8); Alkaline Phosphatase 59 U/L (46-116); Anion Gap 9 (5-15); Aspartate Aminotransferase 19 U/L (13-40); BUN/Creatinine Ratio 13.6 (10.0-20.0); Bilirubin, Total 0.4 mg/dL (0.2-1.0); Blood Urea Nitrogen 12 mg/dL (9-23); Calcium 8.9 mg/dL (8.7-10.4); Carbon Dioxide 26 mmol/L (20-31); Chloride 106 mmol/L (98-107); Potassium 3.7 mmol/L (3.5-5.1); Sodium 141 mmol/L (136-145)
[2024-07-02 07:17] LABS: Glucose 120 mg/dL (74-106)
[2024-07-02 07:56] LABS: Alanine Aminotransferase 22 U/L (7-40)
[2024-07-02] MEDS ORDERED: AZIT-43 PO (12:19)
--- NOTE | 2024-07-02 12:19 | DVHDS2 ---
Discharge Summary Date of Admission Jul 01, 2024 at 07:49 Date of Discharge: Jul 02, 2024 Labs/Diagnostic Data: Laboratory Results Test 07/02/24 06:39 07/01/24 09:00 07/01/24 07:31 07/01/24 07:30 White Blood Count 5.7 10^3/uL (4.4-10.8) Red Blood Count 4.01 10^6/uL (4.0-5.20) Hemoglobin 11.7 g/dL (12.2-16.2) Hematocrit 35.8 % (36.0-46.0) Mean Corpuscular Volume 89.5 fL (80.0-100.0) Mean Corpuscular Hemoglobin 29.1 pg (28.0-32.0) Mean Corpuscular Hemoglobin Concent 32.5 g/dL (32.0-36.0) Red Cell Distribution Width 16.8 % (11.8-14.3) Platelet Count 239 10^3/uL (140-450) Mean Platelet Volume 8.4 fL (6.9-10.8) Neutrophils (%) (Auto) 52.1 % (37.0-80.0) Lymphocytes (%) (Auto) 40.1 % (10.0-50.0) Monocytes (%) (Auto) 4.8 % (0.0-12.0) Eosinophils (%) (Auto) 2.5 % (0.0-7.0) Basophils (%) (Auto) 0.5 % (0.0-2.0) Neutrophils # (Auto) 2.9 10 ^3/uL (1.6-8.6) Lymphocytes # (Auto) 2.3 10 ^3/uL (0.4-5.4) Monocytes # (Auto) 0.3 10 ^3/uL (0-1.3) Eosinophils # (Auto) 0.1 10 ^3/uL (0-0.8) Basophils # (Auto) 0 10 ^3/uL (0-0.2) Nucleated Red Blood Cells 0.2 % Sodium Level 141 mmol/L (136-145) Potassium Level 3.7 mmol/L (3.5-5.1) Chloride Level 106 mmol/L (98-107) Carbon Dioxide Level 26 mmol/L (20-31) Anion Gap 9 (5-15) Blood Urea Nitrogen 12 mg/dL (9-23) Creatinine 0.88 mg/dL (0.550-1.02) Glomerular Filtration Rate Calc 78 mL/min (>90) BUN/Creatinine Ratio 13.6 (10.0-20.0) Serum Glucose 120 mg/dL (74-106) Calcium Level 8.9 mg/dL (8.7-10.4) Total Bilirubin 0.4 mg/dL (0.2-1.0) Aspartate Amino Transferase (AST) 19 U/L (13-40) Alanine Aminotransferase (ALT) 22 U/L (7-40) Alkaline Phosphatase 59 U/L (46-116) Total Protein 6.0 g/dL (5.7-8.2) Albumin 3.6 g/dL (3.2-4.8) Urine Color Colorless (Yellow) Urine Clarity Clear (Clear) Urine pH 8.5 (5.0-9.0) Urine Specific [place] 1.006 (1.001-1.035) Urine Protein Negative (Negative) Urine Ketones Negative (Negative) Urine Blood Negative /uL (Negative) Urine Nitrite Negative (Negative) Urine Bilirubin Negative (Negative) Urine Urobilinogen Normal mg/dL (Negative) Urine Leukocyte Esterase Negative /uL (Negative) Urine RBC <1 /hpf (0 - 4) Urine Microscopic WBC < 1 /HPF (0-5) Urine Squamous Epithelial Cells Few /hpf (<5) Urine Bacteria Few /hpf (None Seen) Urine Glucose Normal mg/dL (Normal) Urine Opiates Screen Neg (NEGATIVE) Urine Fentanyl Screen Neg (NEGATIVE) Urine Barbiturates Screen Neg (NEGATIVE) Urine Phencyclidine Screen Neg (NEGATIVE) Urine Amphetamines Screen Neg (NEGATIVE) Urine Benzodiazepines Screen Neg (NEGATIVE) Urine Cocaine Screen Neg (NEGATIVE) Urine Cannabinoids Screen Neg (NEGATIVE) Salicylates Level < 3.0 mg/dL (-30) Acetaminophen Level < 2.0 UG/ML (10.0-20.0) Troponin I High Sensitivity < 3 ng/L (</=34) Other Laboratory Tests 07/02/24 06:39 Brief Hx & Hospital Course: Assessment Autonomic imbalance status post ingestion of prescription medications Intractable nausea and vomiting Hypokalemia ? Pneumonitis versus aspiration pneumonia Tobacco use Alcohol use History of hyperlipidemia History of depression History of pancreatitis History of bipolar disease History of schizophrenia History of UTIs History of anemia History of protein malnutrition discharged to home pt improved unexpectedly Condition at Discharge: Fair Final Diagnosis/Problems List see aabove Discharge Disposition: Home Discharge Instruct/Medications Diet: Cardiac 2g Na,low cholest Activity: No Restrictions, As Tolerated Discharge Statement: "Patient was advised to return to the ER or call 911 if any headaches, dizziness, shortness of breath, chest pain, abdominal pain, bleeding, fevers, or worsening of medical condition. Patient was counseled about treatment plan, medications, possible side effects, patientverbalized understanding. All questions were answered to the best of my ability. This discharge took greater then 30 minutes in planning, reviewing documentation, counseling the patient, and discussing with other team members." ASSESSMENT ASSESSMENT Assessment Date of Service: Jul 03, 2024 Billing Provider: ANGEL WHALEY DO Common Visit Codes: 95378-BNU/OBS DISCH DAY >30min ANGEL WHALEY DO Jul 02, 2024 12:19
== END 2024-07-02 15:40 | disposition home or self-care (01) | DRG 48 ==
LOC: EDUNIT# 06:13 → ER 06:13 → EDBD 06:13 → OVERFLOW 07:49 → EAST 22:13
PROVIDERS: ADMIT Internal Medicine; ATTEND Internal Medicine
DX: G90.89 Other disorders of autonomic nervous system (principal); J69.0 Pneumonitis due to inhalation of food and vomit; F31.9 Bipolar disorder, unspecified; E78.5 Hyperlipidemia, unspecified; F41.9 Anxiety disorder, unspecified; F20.9 Schizophrenia, unspecified; J98.4 Other disorders of lung; G47.00 Insomnia, unspecified; E87.6 Hypokalemia; F10.90 Alcohol use, unspecified, uncomplicated; Z79.899 Other long term (current) drug therapy; Z82.49 Family history of ischemic heart disease and other diseases of the circulatory system; Z87.440 Personal history of urinary (tract) infections; Z82.5 Family history of asthma and other chronic lower respiratory diseases; Y90.9 Presence of alcohol in blood, level not specified; Y92.89 Other specified places as the place of occurrence of the external cause; T50.901A Poisoning by unspecified drugs, medicaments and biological substances, accidental (unintentional), initial encounter
CPT/HCPCS: 36415; 71045; 80048; 80053; 80307; 80329; 81001; 84132; 84484; 85025; 93005; 94640; G0378; J2405